=== PATIENT | male | born 1975 | race Two or more races ===

== ENCOUNTER 2016-10-10 23:09 | Emergency (ER) | payer MEDICAID, OTHER ==
[~2016-10-10] VITALS: Ht 172.7 cm; Wt 79.4 kg
[2016-10-10 23:24] VITALS: BP 148/96
== END 2016-10-11 03:35 | disposition left against medical advice (07) ==
LOC: ER 23:13
DX: R51 Headache (principal); R20.0 Anesthesia of skin; K08.89 Other specified disorders of teeth and supporting structures; Z53.21 Procedure and treatment not carried out due to patient leaving prior to being seen by health care provider